=== PATIENT | female | born 1940 | race Caucasian/White ===

== ENCOUNTER → 2021-03-28 | Outpatient (CLI) | payer MEDICARE, OTHER ==
[~2021-03-28] VITALS: Ht 165.1 cm; Wt 68.9 kg
== END ==
LOC: OPSV 12:45
DX: M81.0 Age-related osteoporosis without current pathological fracture (principal)
CPT/HCPCS: 96372

== ENCOUNTER → 2021-05-28 | Outpatient (CLI) | payer MEDICARE, OTHER | LOC: CT 09:00 | DX: I71.6 Thoracoabdominal aortic aneurysm, without rupture (principal); I10 Essential (primary) hypertension; Q61.01 Congenital single renal cyst; I77.4 Celiac artery compression syndrome; I77.79 Dissection of other specified artery; Z95.828 Presence of other vascular implants and grafts; Z90.49 Acquired absence of other specified parts of digestive tract; Z90.710 Acquired absence of both cervix and uterus; I77.72 Dissection of iliac artery | CPT/HCPCS: 36415; 71275; 82565; Q9967 ==

== ENCOUNTER → 2021-10-09 | Outpatient (CLI) | payer MEDICARE, OTHER ==
[~2021-10-09] VITALS: Ht 165.1 cm; Wt 68.9 kg
== END ==
LOC: OPSV 12:45
DX: M81.0 Age-related osteoporosis without current pathological fracture (principal)
CPT/HCPCS: 96372

== ENCOUNTER 2022-03-16 12:04 | Emergency (ER) | payer MEDICARE, OTHER ==
[2022-03-16 13:28] LABS: HEMOGLOBIN 13.4 gm/dl (12.3-15.3); RED BLOOD COUNT 4.31 M/UL (4.00-5.10)
[2022-03-16 13:57] LABS: BUN/CREATININE RATIO 25 (0-10)
[2022-03-16] MEDS ORDERED: LEVOFLOXACIN500 MG PO (15:46)
[2022-03-16] MEDS ORDERED: CIPRO500 MG PO (16:01)
[2022-03-16] MEDS ORDERED: ZOFRAN 4 MG TAB4 MG PO (16:04)
== END 2022-03-16 17:05 | disposition home or self-care (01) ==
LOC: ER1 12:04
PROVIDERS: Physician Assistant
DX: K57.92 Diverticulitis of intestine, part unspecified, without perforation or abscess without bleeding (principal); I71.4 Abdominal aortic aneurysm, without rupture; I48.91 Unspecified atrial fibrillation; Z88.2 Allergy status to sulfonamides; Z88.0 Allergy status to penicillin; Z79.82 Long term (current) use of aspirin
CPT/HCPCS: 36415; 71045; 80053; 81001; 82550; 82553; 83605; 83690; 84484; 85025; 87086; 93005; 96374; 99284; J2405; Q9967

== ENCOUNTER → 2022-04-29 | Outpatient (CLI) | payer MEDICARE, OTHER ==
[~2022-04-29] VITALS: Ht 165.1 cm; Wt 68.9 kg
[~2022-04-29] MED LIST: CIPRO500 MG PO; LEVOFLOXACIN500 MG PO; ZOFRAN 4 MG TAB4 MG PO
== END ==
LOC: OPSV 15:00
DX: M81.0 Age-related osteoporosis without current pathological fracture (principal)
CPT/HCPCS: 96372

== ENCOUNTER → 2022-05-06 | Day surgery (SDC) | payer MEDICARE, OTHER ==
[~2022-05-06] MED LIST changes: +AMLODIPINE BESYL5 MG PO; +ATORVASTATIN CA20 MG PO; +BENAZEPRIL HCL40 MG PO; +HYDROCHLOROTH12.5 M1 PO; +LEVOTHYROXINE25 MCG PO; +LOPRESSOR 50 MG50 MG PO; +VAZALORE81 MG PO
== END | disposition home or self-care (01) ==
LOC: OR 06:07
DX: K62.5 Hemorrhage of anus and rectum (principal); D12.0 Benign neoplasm of cecum; K57.30 Diverticulosis of large intestine without perforation or abscess without bleeding; K64.8 Other hemorrhoids; K64.4 Residual hemorrhoidal skin tags; I10 Essential (primary) hypertension; I12.9 Hypertensive chronic kidney disease with stage 1 through stage 4 chronic kidney disease, or unspecified chronic kidney disease; N18.9 Chronic kidney disease, unspecified; E66.3 Overweight; Z68.25 Body mass index [BMI] 25.0-25.9, adult; Z95.5 Presence of coronary angioplasty implant and graft; Z88.0 Allergy status to penicillin; Z88.2 Allergy status to sulfonamides; Z88.8 Allergy status to other drugs, medicaments and biological substances; Z79.82 Long term (current) use of aspirin
CPT/HCPCS: J2704; J7040

== ENCOUNTER → 2022-06-10 | Outpatient (CLI) | payer MEDICARE, OTHER | LOC: CT 07:39 | DX: I71.6 Thoracoabdominal aortic aneurysm, without rupture (principal); I10 Essential (primary) hypertension; Z91.81 History of falling | CPT/HCPCS: 36415; 71275; 82565; 84520; Q9967 ==